=== PATIENT | female | born 2000 ===

== ENCOUNTER 2018-01-04 18:04 | Emergency (ER) | payer SELFPAY ==
[~2018-01-04] VITALS: Ht 160 cm; Wt 68.2 kg
[2018-01-04 18:07] VITALS: BP 139/64; TEMP 98.8
[2018-01-04] MEDS ORDERED: BIRTH CONTROL PO (18:10)
[2018-01-04] MEDS ORDERED: PEN-VEE K500 MG PO (20:00)
[2018-01-04 20:12] VITALS: PULSE 92
== END 2018-01-04 20:13 | disposition home or self-care (01) ==
LOC: COL.ER 18:04
DX: J02.0 Streptococcal pharyngitis (principal)
CPT/HCPCS: J1100